=== PATIENT | female | born 1970 | race Caucasian/White ===

== ENCOUNTER 2017-01-07 09:07 | Emergency (ER) | payer OTHER ==
[~2017-01-07] VITALS: Ht 160 cm; Wt 61.2 kg
--- OUTSIDE RECORDS SUMMARY | 2017-01-07 09:10 | External Medical Summary Rpt ---
Author Author [employer] Organization [employer] Address Unknown Phone Unavailable Purpose Continuity of Care Document - through 2016
--- OUTSIDE RECORDS SUMMARY | 2017-01-07 09:10 | External Medical Summary Rpt ---
Demographics Preferred Language Lithuanian Marital Status Unknown Mormon Affiliation Unknown Race Unknown Ethnic Group Unknown Author Author , Organization [employer] Address Unknown Phone Unavailable Purpose Continuity of Care Document - through 2016 Immunization No patient found.
--- OUTSIDE RECORDS SUMMARY | 2017-01-07 09:10 | External Medical Summary Rpt ---
Author Author CATHERINE Shaikh, [employer] Organization [employer] Address Unknown Phone Unavailable
--- OUTSIDE RECORDS SUMMARY | 2017-01-07 09:10 | External Medical Summary Rpt ---
Demographics Preferred Language Filipino Marital Status Unknown Jehovah'S Witness Affiliation Unknown Race Unknown Ethnic Group Unknown Author Author , Organization [employer] Address Unknown Phone Unavailable Purpose Continuity of Care Document - through 2016 Immunization No patient found.
--- OUTSIDE RECORDS SUMMARY | 2017-01-07 09:18 | External Medical Summary Rpt ---
Demographics Preferred Language Tuvaluan Marital Status Unknown Quaker Affiliation Unknown Race Unknown Ethnic Group Unknown Author Author , Organization [employer] Address Unknown Phone Unavailable Purpose Continuity of Care Document - through 2016 Immunization No patient found.
--- OUTSIDE RECORDS SUMMARY | 2017-01-07 09:18 | External Medical Summary Rpt ---
Demographics Preferred Language Nepalese Marital Status Unknown Restorationist Affiliation Unknown Race Unknown Ethnic Group Unknown Author Author , Organization [employer] Address Unknown Phone Unavailable Purpose Continuity of Care Document - through 2016 Immunization No patient found.
[2017-01-07] MEDS ORDERED: PAROXETINE HCL20 MG PO (09:23)
[2017-01-07] MEDS ORDERED: ZYRTEC ALLERGY10 MG PO (09:23)
--- NOTE | 2017-01-07 09:38 | Urgent Treatment Center Report ---
History of Present Issue Date/Time Seen by Provider 01/07/17 3161 Visit Reason Pt arrived:Walked Presenting Problem:PT STATES SORE THROAT AND RIGHT EAR PAIN FOR A MONTH. STATES SHE HAS TAKEN TWO ROUNDS OF ANTIBIOTICS AND STEROIDS. STATES WHEN SHE IS FINISHED WITH THE MEDICINES, THE SYMPTOMS RETURN. ALSO STATES COUGH Location if Accident: Onset of symptoms date/time:/ or onset unknown for:MEDICAL HX UNKNOWN Have you (or family members/close friends) recently traveled outside the [place]? N If Yes, where/when: Have you had exposure to infectious disease within the past month? TB? Other? Specify: Patient states that she has been through two rounds of antibiotics in the las couple of months for sore throat and ear pain and it has not helped. Now she is noticed that she had a change in color from the mucous from her nose states that it is now a yellowish green and she is having sore throat and ear pressure. [id number] that she finished her last round of antibiotics 2 weeks ago and now the symptoms have returned. States that she has taken Augmentin both times ALLERGIES Coded Allergies: No Known Allergies (01/07/17) Home Medications Reported Medications PAROXETINE HCL (Paroxetine Hcl) 20 MG PO DAILY #30 Cetirizine Hcl (Zyrtec) 10 MG PO DAILY History Medical History General CAD? No Angina: No [place]: No Hypertension? No Hyperlipidemia? No CHF? No DVT? No PE? No COPD? No Asthma? Yes Anemia? No GERD? No Gastric ulcers? No GI Bleed? No Hernia? No Thyroid Problems? No Hypothyroidism? No CVA? No Seizures? No Diabetes? No Renal Insuffiency? No UTI? No Stones? No BPH? No GB Disease: No Nephritic Syndrome? No Asplenia? No Hepatitis? No Sickle Cell Disease? No Arthritis? No Migraines? No Cataracts? No Glaucoma? No MRSA? No HIV? No TB? No Anxiety? No Depression? No Cancer? No More? 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 Respiratory cough Physical Exam Vital Signs Vital Signs Date Time Temp Pulse Resp B/P Pulse O2 O2 Flow FiO2 Ox Delivery Rate 01/07 919 98.7 75 18 127/71 98 General Appearance Patient appears ill, sitting on exam table Ear, Nose, Throat throat bright red, drainage noted, greenish colored mucous noted in nares, nares red, inflammed Respiratory Status Yes: trachea midline, chest symmetrical. No: respiratory distress. 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 No Departure Departure Time of Disposition 938 Disposition DC Home or Self Care(routine) Clinical Impression Primary Impression: Upper respiratory infection Qualifiers: URI type: unspecified URI Qualified Code: J06.9 - Acute upper respiratory infection, unspecified Condition STABLE Referrals [facility] DE [facility] (Family): 3 Days-Call Office Follow up if no improvement or worsening of symptoms Patient Instructions DI for Sinusitis, Sore Throat Additional Instructions * Monitor Temp. Tylenol and/or Ibuprofen as needed. ER if fever is no less than 101 despite alternating Tylenol and Ibuprofen * Encourage fluids, water, Gatorade, powerade, pedialyte if infant/toddler/or child * Warm salt water gargles for throat irritation *Warm fluids *Sore throat lozenges *Sleep elevated *humidifier or vaporizer *Flonase 2 sprays each nostril daily but may take 2-3 days to notice improvement with it *Bromfed may cause drowsiness. Know how it effect you or your child. Before driving, caring for small children or sending your child to school Follow up IMMEDIATELY for new or worsening of symptoms OR no noticeable improvement over the next 48-72 hours. 911 immediately for any life threatening symptoms such as chest pain or difficulty breathing Follow up with family doctor2-3 days if worsening or no improvement of symptoms Discharge Counseling Counseled pt/family regarding diagnosis, test results, home care, follow up needs Prescriptions Current Visit Scripts Azithromycin (Zithromycin (Z-RENEA) 250MG Tab) 250 MG PO DAILY #6 TAB TAKE TWO (2) TABLETS ON DAY 1, THEN ONE (1) TABLET DAY #2 THRU #5 D-METHORPHAN HB/P-EPD HCL/BPM (Bromfed Dm Cough Syrup) 10 ML PO Q4HP PRN cough #120 SYR Fluticasone Propionate (Flonase 50 Mcg Nasal [place]) 2 SPRAY NA DAILY #1 BOT Methylprednisolone (Medrol Dose Renea) 4 MG PO UD #1 RENEA TAKE DIRECTED ON PACKAGING at 0942
--- NOTE | 2017-01-07 09:38 | Urgent Treatment Center Report ---
History of Present Issue Date/Time Seen by Provider 01/07/17 0300 Visit Reason Pt arrived:Walked Presenting Problem:PT STATES SORE THROAT AND RIGHT EAR PAIN FOR A MONTH. STATES SHE HAS TAKEN TWO ROUNDS OF ANTIBIOTICS AND STEROIDS. STATES WHEN SHE IS FINISHED WITH THE MEDICINES, THE SYMPTOMS RETURN. ALSO STATES COUGH Location if Accident: Onset of symptoms date/time:/ or onset unknown for:MEDICAL HX UNKNOWN Have you (or family members/close friends) recently traveled outside the [place]? N If Yes, where/when: Have you had exposure to infectious disease within the past month? TB? Other? Specify: Patient states that she has been through two rounds of antibiotics in the las couple of months for sore throat and ear pain and it has not helped. Now she is noticed that she had a change in color from the mucous from her nose states that it is now a yellowish green and she is having sore throat and ear pressure. [id number] that she finished her last round of antibiotics 2 weeks ago and now the symptoms have returned. States that she has taken Augmentin both times ALLERGIES Coded Allergies: No Known Allergies (01/07/17) Home Medications Reported Medications PAROXETINE HCL (Paroxetine Hcl) 20 MG PO DAILY #30 Cetirizine Hcl (Zyrtec) 10 MG PO DAILY History Medical History General CAD? No Angina: No [place]: No Hypertension? No Hyperlipidemia? No CHF? No DVT? No PE? No COPD? No Asthma? Yes Anemia? No GERD? No Gastric ulcers? No GI Bleed? No Hernia? No Thyroid Problems? No Hypothyroidism? No CVA? No Seizures? No Diabetes? No Renal Insuffiency? No UTI? No Stones? No BPH? No GB Disease: No Nephritic Syndrome? No Asplenia? No Hepatitis? No Sickle Cell Disease? No Arthritis? No Migraines? No Cataracts? No Glaucoma? No MRSA? No HIV? No TB? No Anxiety? No Depression? No Cancer? No More? 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 Respiratory cough Physical Exam Vital Signs Vital Signs Date Time Temp Pulse Resp B/P Pulse O2 O2 Flow FiO2 Ox Delivery Rate 01/07 919 98.7 75 18 127/71 98 General Appearance Patient appears ill, sitting on exam table Ear, Nose, Throat throat bright red, drainage noted, greenish colored mucous noted in nares, nares red, inflammed Respiratory Status Yes: trachea midline, chest symmetrical. No: respiratory distress. 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 No Departure Departure Time of Disposition 938 Disposition DC Home or Self Care(routine) Clinical Impression Primary Impression: Upper respiratory infection Qualifiers: URI type: unspecified URI Qualified Code: J06.9 - Acute upper respiratory infection, unspecified Condition STABLE Referrals [facility] (Family): 3 Days-Call Office Follow up if no improvement or worsening of symptoms Patient Instructions DI for Sinusitis, Sore Throat Additional Instructions * Monitor Temp. Tylenol and/or Ibuprofen as needed. ER if fever is no less than 101 despite alternating Tylenol and Ibuprofen * Encourage fluids, water, Gatorade, powerade, pedialyte if infant/toddler/or child * Warm salt water gargles for throat irritation *Warm fluids *Sore throat lozenges *Sleep elevated *humidifier or vaporizer *Flonase 2 sprays each nostril daily but may take 2-3 days to notice improvement with it *Bromfed may cause drowsiness. Know how it effect you or your child. Before driving, caring for small children or sending your child to school Follow up IMMEDIATELY for new or worsening of symptoms OR no noticeable improvement over the next 48-72 hours. 911 immediately for any life threatening symptoms such as chest pain or difficulty breathing Follow up with family doctor2-3 days if worsening or no improvement of symptoms Discharge Counseling Counseled pt/family regarding diagnosis, test results, home care, follow up needs Prescriptions Current Visit Scripts Azithromycin (Zithromycin (Z-RENEA) 250MG Tab) 250 MG PO DAILY #6 TAB TAKE TWO (2) TABLETS ON DAY 1, THEN ONE (1) TABLET DAY #2 THRU #5 D-METHORPHAN HB/P-EPD HCL/BPM (Bromfed Dm Cough Syrup) 10 ML PO Q4HP PRN cough #120 SYR Fluticasone Propionate (Flonase 50 Mcg Nasal [place]) 2 SPRAY NA DAILY #1 BOT Methylprednisolone (Medrol Dose Renea) 4 MG PO UD #1 RENEA TAKE DIRECTED ON PACKAGING at 0942
[2017-01-07] MEDS ORDERED: FLONASE 50 MCG16 GM (09:42)
[2017-01-07] MEDS ORDERED: MEDROL 4MG. DOSE4 MG PO (09:42)
[2017-01-07] MEDS ORDERED: ZITHROMAX Z PA250 MG PO (09:42)
[2017-01-07] MEDS ORDERED: BROMFED DM COU118 ML PO (09:42)
[2017-01-07 09:53] VITALS: BP 127/71
== END 2017-01-07 09:53 | disposition home or self-care (01) ==
LOC: UTC 09:07
DX: J06.9 Acute upper respiratory infection, unspecified (principal); Z72.0 Tobacco use

== ENCOUNTER 2017-07-13 09:06 | Emergency (ER) | payer OTHER ==
[~2017-07-13] VITALS: Ht 162.6 cm; Wt 65.8 kg
[~2017-07-13 09:06] MED LIST: BROMFED DM COU118 ML PO; FLONASE 50 MCG16 GM; MEDROL 4MG. DOSE4 MG PO; PAROXETINE HCL20 MG PO; ZITHROMAX Z PA250 MG PO; ZYRTEC ALLERGY10 MG PO
--- OUTSIDE RECORDS SUMMARY | 2017-07-13 09:09 | External Medical Summary Rpt | CCD ---
Author Author CATHERINE Address Unknown Phone Purpose Continuity of Care Document - through 2016
--- OUTSIDE RECORDS SUMMARY | 2017-07-13 09:10 | External Medical Summary Rpt | CCD ---
Demographics Preferred Language Maltese Marital Status Unknown Rastafari Affiliation Unknown Race Unknown Ethnic Group Unknown Author Author , CATHERINE ALEXANDER Address Unknown Phone Immunization No patient found.
--- OUTSIDE RECORDS SUMMARY | 2017-07-13 09:10 | External Medical Summary Rpt | CCD ---
Demographics Preferred Language Stateless Marital Status Unknown Amish Affiliation Unknown Race Unknown Ethnic Group Unknown Author Author , CATHERINE ALEXANDER Address Unknown Phone Immunization No patient found.
[2017-07-13] MEDS ORDERED: PROVENTIL0.09 MG/A1 IH (09:23)
[2017-07-13] MEDS ORDERED: PREDNISONE 20MG20 MG PO (09:23)
[2017-07-13] MEDS ORDERED: ZITHROMAX Z PA250 MG PO (09:23)
[2017-07-13] MEDS ORDERED: PROMETHAZINE D118 ML PO (09:23)
[2017-07-13 09:24] VITALS: BP 126/59
--- NOTE | 2017-07-13 09:24 | Urgent Treatment Center Report ---
See Addendum History of Present Issue Date/Time Seen by Provider 07/13/17 0945 Visit Reason Pt arrived:Walked Presenting Problem:PT STATES SHES HAD COUGHING AND WHEEZING X 4 DAYS, NO FEVER OR PAIN. Location if Accident: Onset of symptoms date/time:/ or onset unknown for:MEDICAL HX UNKNOWN Have you (or family members/close friends) recently traveled outside the [place]? N If Yes, where/when: Have you had exposure to infectious disease within the past month? TB? Other? Specify: c/o nonproductive cough w/ wheezing. Started w/ "what I thought was allergy symptoms" 4 days ago but quickly moved into chest. Hx of allergies. Takes antihistamine daily. Added benadryl when symptoms started. OTC cough/cold "helps a little". Hasn't taken or tried anything else. + tobacco abuse. 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 Source patient Exam Limitations no limitations ALLERGIES Coded Allergies: No Known Allergies (01/07/17) Home Medications Reported Medications PAROXETINE HCL (Paroxetine Hcl) 20 MG PO DAILY #30 History Medical History General CAD? No Angina: No [place]: No Hypertension? No Hyperlipidemia? No CHF? No DVT? No PE? No COPD? No Asthma? Yes Anemia? No GERD? No Gastric ulcers? No GI Bleed? No Hernia? No Thyroid Problems? No Hypothyroidism? No CVA? No Seizures? No Diabetes? No Renal Insuffiency? No UTI? No Stones? No BPH? No GB Disease: No Nephritic Syndrome? No Asplenia? No Hepatitis? No Sickle Cell Disease? No Arthritis? No Migraines? No Cataracts? No Glaucoma? No MRSA? No HIV? No TB? No Anxiety? No Depression? No Cancer? No More? No Immunization HX DT/Tetanus 1-4 Years Ago Surgical Hx Previous Surgery?Y TUBAL Social History Smoking Hx Smoker: Current Every Day Smoker Tobacco: Yes Type Cigarettes Packs/day < 1 Pack Alcohol Alcohol: No Review of Systems All Other Systems Reviewed and Negative Constitutional see HPI, denies chills, denies fever, denies malaise, denies weakness Eyes denies drainage ENT nose discharge, nose congestion. denies: ear pain, ear discharge, throat pain. Respiratory see HPI, shortness of breath ("maybe with lots of exertion"), denies stridor, wheezing Cardiovascular denies chest pain, denies palpitations Gastrointestinal denies no symptoms reported Musculoskeletal denies joint pain Skin denies rash Psychiatric/Neurological denies headache Physical Exam Vital Signs Vital Signs Date Time Temp Pulse Resp B/P Pulse O2 O2 Flow FiO2 Ox Delivery Rate 07/13 924 97.5 83 18 126/59 97 07/13 914 97.5 83 18 126/59 97 General Appearance normal appearance, no apparent distress Ear, Nose, Throat normal ENT inspection Neck non-tender, supple Respiratory Status Yes: trachea midline, chest symmetrical, non productive cough (worse w/ deep breaths). No: respiratory distress, use of accessory muscles, pain on inspiration, pain on expiration. Lung Sounds bilateral: wheezing (only very end expiration). Cardiovascular regular rate/rhythm, no peripheral edema, no murmur Neurologic alert, oriented x 3 Skin normal color, warm/dry Lymphatic no adenopathy Comments lungs otherwise clear except very end expiratory wheeze scattered throughout, improves w/ cough Medical Decision Making LABS/Meds/Orders Pt receiving controlled substance in ED? No Results/Orders Current Medication Orders Sig/Castro Start time Last Medication Dose Route Stop Time Status Admin Methylprednisolone 125 MG ONCE ONE 07/13 930 DCD 07/13 Sodium Succinate IM 07/13 Methylprednisolone 0 .STK-MED ONE 07/13 920 DC Sodium Succinate .ROUTE Departure Departure Time of Disposition 920 Disposition DC Home or Self Care(routine) Clinical Impression Primary Impression: Acute bronchitis Qualifiers: Bronchitis organism: unspecified organism Qualified Code: J20.9 - Acute bronchitis, unspecified Secondary Impressions: Tobacco abuse Condition STABLE Referrals NO REFERRAL Follow up with primary care for new, worsening or persistant symptoms. Should start to notice improvement over the next 48-72 hours. Return to ER for difficulty breathing. Patient Instructions DI for Acute Bronchitis, How to Quit Tobacco Products Additional Instructions * STOP SMOKING!!!! * start antibiotic today. Be sure to complete entire prescription even if feeling better. * Monitor Temp. Tylenol every 4 hours as needed no more then 5 times a day or 4000mg in 24 hours and/or ibuprofen every 6 hours as needed no more then 3200mg in 24 hours (as long as your primary care doctor has told you that it is ok to take both) for fever/aches/pain. ER if fever no less than 101 despite tylenol and ibuprofen * humidifier/vaporizer/hot steamy shower * Inhaler every 4-6 hours as needed like we discussed. If unsure how to use it, ask pharmacist to demonstrate how. Should help open airways and improve cough, wheezing, shortness of breath. * Mucinex during the day for your cough and cough suppressant only at night. Be sure to drink lots of water. Insurance may not cover a prescription of mucinex. Might be cheaper to get 400mg tablets and take 2 tablets morning, midday and evening all with lots of water. * Promethazine DM cough syrup will cause drowsiness. Use it only at night. No driving, operating machinery or caring for small children after taking it. * Start steroid tomorrow since you had injection today in clinic. Helps with inflammation therefore, cough and wheezing. Follow directions on package. Rvwd side effects. Pt reports they have taken them before. Discharge Counseling Counseled pt/family regarding diagnosis, test results, medications/RX, home care, follow up needs Prescriptions Current Visit Scripts ALBUTEROL (Proventil Hfa Inhaler) 1-2 PUFF IH Q4-6H PRN PRN SOA, wheezing #1 CAN Azithromycin (Zithromycin (Z-RENEA) 250MG Tab) 250 MG PO DAILY #6 TAB TAKE TWO (2) TABLETS ON DAY 1, THEN ONE (1) TABLET DAY #2 THRU #5 PROMETHAZINE/DEXTROMETHORPHAN (Promethazine-Dm Syrup) 5-10 ML PO QHSP PRN cough #120 ML Prednisone (Prednisone 20MG) 20 MG PO BID #10 TAB at 0932
== END 2017-07-13 09:27 | disposition home or self-care (01) ==
LOC: UTC 09:06
DX: J20.9 Acute bronchitis, unspecified (principal); B37.0 Candidal stomatitis; F17.210 Nicotine dependence, cigarettes, uncomplicated

== ENCOUNTER 2017-08-02 08:57 | Emergency (ER) | payer OTHER ==
[~2017-08-02] VITALS: Ht 162.6 cm; Wt 68.0 kg
[~2017-08-02 08:57] MED LIST changes: +PREDNISONE 20MG20 MG PO; +PROMETHAZINE D118 ML PO; +PROVENTIL0.09 MG/A1 IH
--- OUTSIDE RECORDS SUMMARY | 2017-08-02 09:00 | External Medical Summary Rpt | CCD ---
Demographics Preferred Language Congolese Marital Status Unknown Hoahaoism Affiliation Unknown Race Unknown Ethnic Group Unknown Author Author , CATHERINE ALEXANDER Address Unknown Phone Immunization No patient found.
--- OUTSIDE RECORDS SUMMARY | 2017-08-02 09:00 | External Medical Summary Rpt | CCD ---
Demographics Preferred Language Samoan Marital Status Unknown Taoist Affiliation Unknown Race Unknown Ethnic Group Unknown Author Author , CATHERINE ALEXANDER Address Unknown Phone Immunization No patient found.
--- NOTE | 2017-08-02 09:49 | Urgent Treatment Center Report ---
History of Present Issue Date/Time Seen by Provider 08/02/17 0941 Visit Reason Pt arrived:Walked Presenting Problem:HEAD AND CHEST CONGESTION WITH A COUGH FOR 3 DAYS Location if Accident: Onset of symptoms date/time:/ or onset unknown for:MEDICAL HX UNKNOWN Have you (or family members/close friends) recently traveled outside the [place]? N If Yes, where/when: Have you had exposure to infectious disease within the past month? TB? Other? Specify: Patient state that she has been having cough and congestion for about 3 days States that she feels like she may be having some drainage States that she has been having some wheezing and now she has lost her voice State that she noticed too that her throat was red, and sore. ALLERGIES Coded Allergies: No Known Allergies (01/07/17) Home Medications Active Scripts PROMETHAZINE/DEXTROMETHORPHAN (Promethazine-Dm Syrup) 5-10 ML PO QHSP PRN cough #120 ML Prov: 07/13/17 Reported Medications PAROXETINE HCL (Paroxetine Hcl) 20 MG PO DAILY #30 History Medical History General CAD? No Angina: No [place]: No Hypertension? No Hyperlipidemia? No CHF? No DVT? No PE? No COPD? No Asthma? Yes Anemia? No GERD? No Gastric ulcers? No GI Bleed? No Hernia? No Thyroid Problems? No Hypothyroidism? No CVA? No Seizures? No Diabetes? No Renal Insuffiency? No UTI? No Stones? No BPH? No GB Disease: No Nephritic Syndrome? No Asplenia? No Hepatitis? No Sickle Cell Disease? No Arthritis? No Migraines? No Cataracts? No Glaucoma? No MRSA? No HIV? No TB? No Anxiety? No Depression? No Cancer? No More? No Immunization HX DT/Tetanus 1-4 Years Ago Surgical Hx Previous Surgery?Y TUBAL Social History Smoking Hx Smoker: Current Every Day Smoker Tobacco: Yes Type Cigarettes Packs/day < 1 Pack Alcohol Alcohol: No Review of Systems All Other Systems Reviewed and Negative ENT throat pain. Respiratory cough, denies shortness of breath, denies stridor, wheezing Cardiovascular denies chest pain, denies palpitations Physical Exam Vital Signs Vital Signs Date Time Temp Pulse Resp B/P Pulse O2 O2 Flow FiO2 Ox Delivery Rate 08/02 0916 97.9 73 20 111/83 98 General Appearance normal appearance, WD/WN, no apparent distress Ear, Nose, Throat Throat red, irritated no exudate noted, drainage noted Tenderness noted maxillary sinuses Respiratory Status Yes: trachea midline, chest symmetrical, non tender chest. No: respiratory distress. Lung Sounds bilateral: wheezing. Cardiovascular normal exam, regular rate/rhythm Neurologic alert, normal exam, oriented x 3 Medical Decision Making LABS/Meds/Orders Pt receiving controlled substance in ED? No Results/Orders Current Medication Orders Sig/Castro Start time Last Medication Dose Route Stop Time Status Admin Albuterol/Ipratropium 0 .STK-MED ONE 08/02 948 DC INH Albuterol/Ipratropium 3 ML ONCE ONE 08/02 945 DC 08/02 INH 08/02 946 0949 Orders Procedure Date/time Status RT REQUEST DUONEB 08/02 945 Active CHEST(2 VIEWS-NOT PORTABLE) 08/02 945 Active XRAY/CT/US XRAY/CT/US XRAY chest XR interpretation by reviewed by me Xray Results no infiltrates, Bronchititis Comment Consulted with Dr Dee Departure Departure Time of Disposition 101 Disposition DC Home or Self Care(routine) Clinical Impression Primary Impression: Bronchitis Condition STABLE Patient Instructions Cough Additional Instructions * Monitor Temp. Tylenol and/or Ibuprofen as needed. ER if fever is no less than 101 despite alternating Tylenol and Ibuprofen * Encourage fluids, water, Gatorade, powerade, pedialyte if infant/toddler/or child * Warm salt water gargles for throat irritation *Warm fluids *Sore throat lozenges *Sleep elevated *humidifier or vaporizer Lots of rest Increase fluids, water, Gatorade, powerade Use vaporizer or Humidifier will help to moisten the air and help with breathing Follow up with family doctor if symptoms do not improve Discharge Counseling Counseled pt/family regarding diagnosis, test results, medications/RX, home care Prescriptions Current Visit Scripts Azithromycin (Zithromycin (Z-ATUL) 250MG Tab) 250 MG PO DAILY #6 TAB TAKE TWO (2) TABLETS ON DAY 1, THEN ONE (1) TABLET DAY #2 THRU #5 Methylprednisolone (Medrol Dose Atul) 4 MG PO UD #1 ATUL TAKE DIRECTED ON PACKAGING Guaifenesin (Mucinex) 1,200 MG PO BID #20 TER Benzonatate (Tessalon Perle) 100 MG PO TID #15 SGL Albuterol Sulfate (Proair Hfa) 2 PUFFS IH QID #1 INH at 1020
[2017-08-02] MEDS ORDERED: MUCINEX1200 MG PO (10:23)
[2017-08-02] MEDS ORDERED: MEDROL 4MG. DOSE4 MG PO (10:23)
[2017-08-02] MEDS ORDERED: ZITHROMAX Z PA250 MG PO (10:23)
[2017-08-02] MEDS ORDERED: TESSALON PERLE100 M1 PO (10:23)
[2017-08-02] MEDS ORDERED: PROAIR HFA0.09 MG/AC IH (10:23)
[2017-08-02 10:27] VITALS: BP 108/90
--- NOTE | 2017-08-02 11:02 | RADIOLOGY REPORT PS360 ---
CHEST(2 VIEWS-NOT PORTABLE) HISTORY: cough ORDERING PHYSICIAN: VERO KEENAN APRN PATIENT AGE: 46 years COMPARISON: None available FINDINGS: The cardiomediastinal silhouette and pulmonary vascularity are within normal limits. The lungs are clear without infiltrates, suspicious nodules, or pleural effusions. No acute bony abnormalities. IMPRESSION: Negative chest, no acute finding
== END 2017-08-02 10:27 | disposition home or self-care (01) ==
LOC: UTC 08:57
DX: J20.9 Acute bronchitis, unspecified (principal); F17.210 Nicotine dependence, cigarettes, uncomplicated; J45.909 Unspecified asthma, uncomplicated